=== PATIENT | female | born 1945 | race Caucasian/White ===

== ENCOUNTER 2022-03-09 09:41 | Emergency (ER) | payer MEDICARE, OTHER, SELFPAY ==
[2022-03-09] VITALS (8 sets, daily range): BP systolic 138–178; BP diastolic 58–78; PULSE 57–78; RESP 10–20; TEMP 36.1; O2SAT 95–99; BMI 26.2
--- NOTE | 2022-03-09 10:08 | CRLHL7_ITS ---
For Patients: As a result of the Century Cures Act, medical imaging exams and procedure reports are released immediately into your electronic medical record. You may view this report before your referring provider. If you have questions, please contact your health care provider. Indication: STROKE SYMPTOMS ,VERTIGO Technique: CT of the head without contrast. Coronal and sagittal reformats. Bone and soft tissue windows. Comparison: No prior studies available for comparison at this institution. Findings: No acute intracranial hemorrhage or extra-axial collection. No evidence of acute cortical infarction. No mass effect or midline shift. Normal cerebral volume. The ventricles are normal in size, shape and contour. There is normal aguilar and white matter differentiation. Mild scattered foci of hypoattenuation in the bilateral frontal lobe subcortical white matter nonspecific but may be secondary to chronic small vessel white matter ischemic changes. The orbital contents are normal. No calvarial fractures. No lytic or sclerotic osseous lesions within the calvarium or skull base. Scalp and other imaged soft tissue structures are normal. Mastoid air cells are clear. Paranasal sinuses are well aerated. Impression: 1. No acute intracranial abnormality. 2. Mild scattered foci of hypoattenuation in the bilateral frontal lobe subcortical white matter nonspecific but may be secondary to chronic small vessel white matter ischemic changes. Please note that all CT scans at this facility use dose modulation, iterative reconstruction, and/or weight-based dosing when appropriate to reduce radiation dose to as low as reasonably achievable. Dictated by Jose Antonio Harrison MD @ 03/09/2022 11:07:06 AM (Electronically Signed)
--- NOTE | 2022-03-09 10:08 | CRLHL7_ITS ---
For Patients: As a result of the Century Cures Act, medical imaging exams and procedure reports are released immediately into your electronic medical record. You may view this report before your referring provider. If you have questions, please contact your health care provider. DATE: 03/09/2022. CLINICAL HISTORY: Vertigo. TECHNIQUE: Standard helical CT image acquisition through the head and neck was performed after intravenous contrast bolus enhancement. Multiplanar reconstructed images were performed and interpreted. COMPARISON: None available. FINDINGS: The origins of the great vessels from the aortic arch are patent. The origins of the right and left vertebral arteries are patent. The common carotid arteries are patent. Very mild (much less than 50%) atherosclerotic stenosis of the bilateral proximal ICAs by NASCET criteria. The more distal cervical segments of the internal carotid arteries are patent. The cervical segments of the vertebral arteries are patent. No intracranial proximal large vessel occlusion or flow-limiting luminal stenosis. No evidence of cerebral aneurysm or findings to suggest an arteriovenous shunting lesion. IMPRESSION: 1. No intracranial proximal large vessel occlusion or flow-limiting luminal stenosis. 2. Very mild (much less than 50%) atherosclerotic stenosis of the bilateral proximal ICAs by NASCET criteria. Please note that all CT scans at this facility use dose modulation, iterative reconstruction, and/or weight-based dosing when appropriate to reduce radiation dose to as low as reasonably achievable. Dictated by Tripp Moreno MD @ 03/09/2022 3:12:41 PM (Electronically Signed)
--- NOTE | 2022-03-09 10:24 | ED_ITS ---
HPI - General Adult General Chief complaint: Dizziness/Vertigo Stated complaint: Dizziness/vomiting/diabetic Time Seen by Provider: 03/09/22 10:04 Source: patient History of Present Illness HPI narrative: 76-year-old female coming in today concerned about vertigo. She states that she was in her usual state of health this morning when all of a sudden she became acutely dizzy and the room started spinning around her. She started vomiting. She remains very dizzy and nauseated now. She complains of a headache in the left temporal region that radiates to the back of her head. She denies any changes in her vision, no changes in her hearing, no ringing in her ears. She denies any recent illness, fevers or chills. She is not short of breath and she denies any chest pain. She states that she feels very off balance and she can not walk in a straight line. She is not on any blood thinners, denies a history of stroke. Related Data Home Medications Medication Instructions Recorded Confirmed empagliflozin .ROUTE 03/09/22 levothyroxine 200 mcg capsule 200 mcg PO DAILY 03/09/22 03/09/22 Previous Rx's Medication Instructions Recorded meclizine 25 mg tablet 25 mg PO BID PRN #10 tabs 03/09/22 ondansetron 4 mg disintegrating 4 mg PO Q8H PRN nausea and 03/09/22 tablet vomiting #10 tabs Allergies Allergy/AdvReac Type Severity Reaction Status Date / Time Sulfa (Sulfonamide Allergy Intermediate Rash Verified 03/09/22 09:58 Antibiotics) Review of Systems Status of ROS: Reports: 10 or more systems reviewed and unremarkable except as noted in History and below [facility] Medical History DM (diabetes mellitus), type 2 Hypothyroid Pancreatitis Surgical History H/O: hysterectomy History of pancreatic surgery S/P cholecystectomy Social History Smoking Status: Former smoker How often do you have a drink containing alcohol: never AUDIT-C Alcohol total score: 0 Non-prescribed substance use: denies use Exam Narrative: Exam Narrative: Well-nourished well-developed patient who appears uncomfortable. Alert and oriented. Answers questions appropriately. Mood and affect are appropriate. Thoughts are goal oriented and rational. No tangential or magical thinking noted. Patient speaks in full sentences without needing to catch her breath. HEENT: Normocephalic atraumatic. Pupils are equally round reactive to light. Extraocular muscles are intact. Conjunctivae are moist without any icterus noted. Moist mucous membranes. Posterior pharynx is normal. Neck is soft without any lymphadenopathy or thyromegaly. No masses are appreciated. Cardiovascular: Heart is regular rate and rhythm S1 and S2 are present without any murmurs. Lungs: Clear to auscultation bilaterally no wheezes rhonchi or rales are appreciated. Patient takes deep breaths without any discomfort. Abdomen: Soft and nontender nondistended with normal bowel sounds. Extremities: Bilateral lower extremities are without edema. Normal DP and PT pulses. Skin: Well perfused without any obvious rashes. Strength is 5/5 of the upper and lower extremities. Reflexes are 2+ and sym metric at the knees. Cranial nerves 3-12 are normal. Patient has a left beating nystagmus. She requests not to ambulate secondary to feeling so lightheaded. Const: Vital Signs, click to edit/add: Vital Signs - 24 hr 03/09/22 09:52 03/09/22 10:30 03/09/22 10:45 Temperature 97 F L Pulse Rate 66 64 Pulse Rate [Pulse Oximeter] 78 Respiratory Rate 20 14 10 L Blood Pressure 148/58 H 148/69 H Blood Pressure [Le ft Upper Arm] 178/77 H Pulse Oximetry 98 97 97 Oxygen Delivery Me thod Room Air 03/09/22 11:00 03/09/22 11:15 03/09/22 11:45 Temperature Pulse Rate 62 57 L 68 Pulse Rate [Pulse Oximeter] Respiratory Rate 12 12 12 Blood Pressure 141/68 H 138/65 150/69 H Blood Pressure [Le ft Upper Arm] Pulse Oximetry 96 95 98 Oxygen Delivery Me thod 03/09/22 12:00 Temperature Pulse Rate 74 Pulse Rate [Pulse Oximeter] Respiratory Rate 12 Blood Pressure Blood Pressure [Le ft Upper Arm] Pulse Oximetry 99 Oxygen Delivery Me thod Course Course Hospital Course: Given the acute onset of her symptoms, there is certainly a concern for stroke. therefore head CT and CTA were ordered immediately and radiology was called. These were unremarkable. I did consult with Dr. Camacho, neurology at [facility], who recommended Valium to see if her symptoms would bakari. If not he recommended MRI. 2 mg of IV Valium, 1 L of normal saline and Zofran were given and the patient stated that the room stops spinning as aggressively and she noticed that if she states still she did feel better however she had gotten up to use the bathroom and stated that she still could not walk in a straight line. Because of this we did go ahead and proceed with a head MRI which fortunately, was also unremarkable. Labs unremarkable, EKG showing first-degree AV block. Vital Signs Vital signs: Initial Vital Signs Temperature 97 F L 03/09/22 09:52 Temperature Source Temporal Artery Scan 03/09/22 09:52 Pulse Rate 78 03/09/22 09:52 Respiratory Rate 20 03/09/22 09:52 Blood Pressure 178/77 H 03/09/22 09:52 Blood Pressure Mean 110 03/09/22 09:52 Blood Pressure Position Supine 03/09/22 09:52 Pulse Oximetry 98 03/09/22 09:52 Oxygen Delivery Method 03/09/22 09:52 Vital Signs Temperature 97 F L 03/09/22 09:52 Pulse Rate 78 03/09/22 09:52 Respiratory Rate 20 03/09/22 09:52 Blood Pressure 178/77 H 03/09/22 09:52 Pulse Oximetry 98 03/09/22 09:52 Oxygen Delivery Method 03/09/22 09:52 Temperature 97 F L 03/09/22 09:52 Pulse Rate 74 03/09/22 12:00 Respiratory Rate 12 03/09/22 12:00 Blood Pressure 150/69 H 03/09/22 11:45 Pulse Oximetry 99 03/09/22 12:00 Oxygen Delivery Method 03/09/22 09:52 Medical Decision Making MDM Narrative Medical decision making narrative: 76-year-old female with vertigo, likely benign positional vertigo given that it was aggravated by positional changes. We did rule out stroke today. Differential Diagnosis Differential Diagnosis: Benign positional vertigo, migraine, labyrinthitis, vestibular neuritis Medical Records Medical records reviewed: Yes I reviewed the patient's medical records Lab Data Lab results reviewed: Yes I reviewed the patient's lab results Labs: Lab Results 03/09/22 03/09/22 03/09/22 Range/Units 10:20 10:20 11:40 WBC 8.90 (4.50-11.00) K/uL RBC 4.88 (4.00-5.20) m/uL Hgb 15.3 (12.0-16.0) gm/dL Hct 43.1 (33.0-51.0) % MCV 88 (80-100) fL MCH 31 (26-34) pg MCHC 36 (32-36) gm/dL RDW Coeff of Matias 11.8 (11.5-15.5) % Plt Count 277 (140-440) K/uL Neut % (Auto) 76.8 H (42.0-72.0) % Lymph % (Auto) 18.1 L (20-44) % Woodward % (Auto) 4.2 (0.0-11.0) % Eos % (Auto) 0.2 (0.0-7.0) % Baso % (Auto) 0.4 (0.0-3.0) % Neut # (Auto) 6.80 (1.7-7.0) K/uL Lymph # (Auto) 1.60 (0.90-2.90) K/uL Woodward # (Auto) 0.40 (0.00-0.90) K/UL Eos # (Auto) 0.02 (0.00-0.50) K/uL Baso # (Auto) 0.04 (0.00-0.30) K/uL Abs Immat Gran (auto) 0.03 (0.00-0.30) K/uL Sodium 141 (135-149) mmol/L Potassium 4.2 (3.6-5.1) mmol/L Chloride 104 (96-114) mmol/L Carbon Dioxide 26 (20-32) mmol/L BUN 19 (7-30) mg/dL Creatinine 0.8 (0.5-1.5) mg/dL Estimated Creat Clear 48.28 Estimated GFR 76 ml/min Glucose 158 H (60-115) mg/dL Calcium 9.1 (8.4-10.6) mg/dL Total Bilirubin 0.8 (0.1-1.5) mg/dL Direct Bilirubin 0.2 (0.0-0.5) mg/dL AST 26 (12-35) U/L ALT 24 (4-35) U/L Alkaline Phosphatase 133 (40-150) U/L Total Protein 8.0 (6.0-8.3) g/dL Albumin 4.6 (3.3-5.0) g/dL Urine Color Yellow (Yellow) Urine Appearance Clear (Clear) Urine pH 6.0 (5.0-8.5) Ur Specific Only 1.010 (1.000-1.030) Urine Protein Negative (Negative) Urine Glucose (UA) 2+ A (Negative) Urine Ketones 2+ A (Negative) Urine Blood Negative (Negative) Urine Nitrite Negative (Negative) Urine Bilirubin Negative (Negative) Urine Urobilinogen 0.2 (0.2-1.0) Ur Leukocyte Esterase Negative (Negative) Urine RBC 0-2 (0-2) Urine WBC 0-2 (0-5) Ur Squamous Epith Cells Few (None-Few) Urine Bacteria None (None) Imaging Data CT scan - head: Attestation: I have reviewed the pertinent imaging results. My impression: No acute findings, no evidence of hemorrhage. Radiologist's impression: Findings: No acute intracranial hemorrhage or extra-axial collection. No evidence of acute cortical infarction. No mass effect or midline shift. Normal cerebral volume. The ventricles are normal in size, shape and contour. There is normal aguilar and white matter differentiation. Mild scattered foci of hypoattenuation in the bilateral frontal lobe subcortical white matter nonspecific but may be secondary to chronic small vessel white matter ischemic changes. The orbital contents are normal. No calvarial fractures. No lytic or sclerotic osseous lesions within the calvarium or skull base. Scalp and other imaged soft tissue structures are normal. Mastoid air cells are clear. Paranasal sinuses are well aerated. Impression: 1. No acute intracranial abnormality. 2. Mild scattered foci of hypoattenuation in the bilateral frontal lobe subcortical white matter nonspecific but may be secondary to chronic small vessel white matter ischemic changes. MRI - head: Attestation: I have reviewed the pertinent imaging results. Radiologist's impression: FINDINGS: The ventricles and sulci are within normal limits for patient age. No mass effect or midline shift. Scattered T2 FLAIR hyperintensities in the supratentorial white matter, typical for mild chronic microvascular ischemic changes. No diffusion restriction to suggest acute infarction. Punctate susceptibility in the right basal ganglia may relate to mineralization or chronic hemorrhage. No recent intracranial hemorrhage or pathologic extra-axial fluid collection. The major arterial flow voids of the skullbase are preserved. Thinning of the ocular lenses. The paranasal sinuses are well aerated. Trace mastoid fluid bilaterally. IMPRESSION: 1. No acute infarction, mass effect, or intracranial hemorrhage. 2. Mild chronic microvascular ischemic changes. Head and neck CTA: Attestation: I have reviewed the pertinent imaging results. Radiologist's impression: Preliminary Report: 1. No evidence of proximal artery occlusion, high grade stenosis, aneurysm, dissection, or vascular malformation. 2. Atherosclerotic calcifications in the carotid arteries resulting in less than 50 percent stenosis. ECG Data Attestation: I personally reviewed and interpreted this ECG as follows: (Normal sinus rhythm with first-degree AV block, heart rate 70) Discharge Plan Discharge Clinical Impression: Benign paroxysmal positional vertigo Patient Disposition: Home, Self-Care Condition: Stable Additional Instructions: Stay well hydrated, get plenty of rest. Move slowly throughout the day and ask for assistance when needed, this dizziness will increase your risk of fall. Okay to take Zofran for nausea and meclizine to help with dizzy symptoms. Follow-up with your primary care provider once she returned home to discuss physical therapy - something called an Marina maneuver can help with these symptoms. Prescriptions: New meclizine 25 mg tablet 25 mg PO BID PRNQty: 10 0RF ondansetron 4 mg tablet,disintegrating 4 mg PO Q8H PRN (Reason: nausea and vomiting) Qty: 10 0RF No Action levothyroxine 200 mcg capsule 200 mcg PO DAILY empagliflozin [Jardiance] .ROUTE Follow Up/Referrals: Provider,Not a Local [Primary Care Provider] - Stand Alone Forms: Funding Profiles Info Instructions
[2022-03-09 10:26] LABS: Basophils Absolute Auto 0.04 K/uL (0.00-0.30); Basophils Percent Auto 0.4 % (0.0-3.0); Eosinophils Absolute Auto 0.02 K/uL (0.00-0.50); Eosinophils Percent Auto 0.2 % (0.0-7.0); Hematocrit 43.1 % (33.0-51.0); Hemoglobin* 15.3 gm/dL (12.0-16.0); Immature Granulocytes Abs Auto 0.03 K/uL (0.00-0.30); Lymphocytes Percent Auto 18.1 % (20-44); Mean Corpuscular HGB Conc 36 gm/dL (32-36); Mean Corpuscular Hemoglobin 31 pg (26-34); Mean Corpuscular Volume 88 fL (80-100); Monocytes Percent Auto 4.2 % (0.0-11.0); Neutrophils Percent Auto 76.8 % (42.0-72.0); Platelet Count* 277 K/uL (140-440); RDW Coefficient of Variation % 11.8 % (11.5-15.5); Red Blood Count 4.88 m/uL (4.00-5.20)
[2022-03-09 10:32] LABS: Slide Review Reflex No
[2022-03-09 10:40] LABS: Chloride* 104 mmol/L (96-114)
[2022-03-09 10:41] LABS: Albumin* 4.6 g/dL (3.3-5.0); Potassium* 4.2 mmol/L (3.6-5.1); Sodium* 141 mmol/L (135-149)
[2022-03-09 10:43] LABS: Creatinine* 0.8 mg/dL (0.5-1.5); Est. Creatinine Clearance* 48.28; Estimated Glomerular Filt Rate 76 ml/min
[2022-03-09 10:44] LABS: Alanine Aminotransferase* 24 U/L (4-35); Alkaline Phosphatase* 133 U/L (40-150); Aspartate Amino Transferase* 26 U/L (12-35); Bilirubin Direct* 0.2 mg/dL (0.0-0.5); Bilirubin Total* 0.8 mg/dL (0.1-1.5); Blood Urea Nitrogen* 19 mg/dL (7-30); Calcium* 9.1 mg/dL (8.4-10.6); Carbon Dioxide* 26 mmol/L (20-32); Glucose* 158 mg/dL (60-115)
[2022-03-09] MEDS: 0.9 % SODIUM CHLORIDE 1000 ml 1,000 ML IV (10:56)
[2022-03-09] MEDS: ONDANSETRON 2 MG/ML inj 4 MG IVP (10:57)
--- NOTE | 2022-03-09 11:45 | CRLHL7_ITS ---
For Patients: As a result of the Century Cures Act, medical imaging exams and procedure reports are released immediately into your electronic medical record. You may view this report before your referring provider. If you have questions, please contact your health care provider. INDICATION: Stroke-like symptoms. TECHNIQUE: Multiplanar multisequence noncontrast MR images acquired. COMPARISON: CT brain 03/09/2022. FINDINGS: The ventricles and sulci are within normal limits for patient age. No mass effect or midline shift. Scattered T2 FLAIR hyperintensities in the supratentorial white matter, typical for mild chronic microvascular ischemic changes. No diffusion restriction to suggest acute infarction. Punctate susceptibility in the right basal ganglia may relate to mineralization or chronic hemorrhage. No recent intracranial hemorrhage or pathologic extra-axial fluid collection. The major arterial flow voids of the skullbase are preserved. Thinning of the ocular lenses. The paranasal sinuses are well aerated. Trace mastoid fluid bilaterally. IMPRESSION: 1. No acute infarction, mass effect, or intracranial hemorrhage. 2. Mild chronic microvascular ischemic changes. Dictated by Tobi Bhatia MD @ 03/09/2022 12:53:31 PM (Electronically Signed)
[2022-03-09] MEDS: diazePAM 5 MG/ML inj 2 MG IV (11:56)
[2022-03-09 11:59] LABS: Appearance Urine Clear (Clear); Bilirubin Urine Negative (Negative); Blood Urine Negative (Negative); Color Urine Yellow (Yellow); Glucose Urine 2+ (Negative); Ketones Urine 2+ (Negative); Leukocyte Esterase Urine Negative (Negative); Nitrite Urine Negative (Negative); Protein Urine Negative (Negative); Urobilinogen Urine 0.2 (0.2-1.0)
[2022-03-09 12:20] LABS: RBC Urine 0-2 (0-2); Squamous Epithelial Cell Urine Few (None-Few); WBC Urine 0-2 (0-5)
== END 2022-03-09 14:07 | disposition home or self-care (01) ==
PROVIDERS: Emergency Provider Family Medicine
DX: H81.10 Benign paroxysmal vertigo, unspecified ear (principal); R51.9 Headache, unspecified; E11.9 Type 2 diabetes mellitus without complications
CPT/HCPCS: 36415; 70450; 70496; 70498; 70551; 80048; 80076; 81001; 85025; 87086; 87186; 93005; 96374; 96375; 99285; J2405; J3360; J7030; Q9967